=== PATIENT | male | born 1945 | race Hispanic/Latino ===

== ENCOUNTER 2016-07-14 09:44 | Day surgery (SDC) | payer MEDICARE, MEDICAID ==
[2016-07-14] VITALS (9 sets, daily range): BP systolic 112–193; BP diastolic 49–64; PULSE 57–64; RESP 16; O2SAT 96–99
[~2016-07-14] VITALS: Ht 160 cm; Wt 60.0 kg
[~2016-07-14 09:44] MED LIST: AMLO5TAB2 PO; ASPI-973 PO; CALMOSEPTINE TOP; CEPH-512 PO; CHOL500050 PO; CLOP75TA28 PO; DEXT1DRO8 LEFT_EYE; ESZO2TAB38 PO; HYDR-3740 PO; INSU100C8 SUBQ; INSU100I13 SUBQ; LISI-567 PO; NEPHVIT PO; TRAZ-115 PO; [UNRECOGNIZED DRUG - OTHER] PO
[2016-07-14 11:27] LABS: BASOPHILS % (AUTO) 0.2 % (0-3); EOSINOPHILS % (AUTO) 0.9 % (0-5); MONOCYTES % (AUTO) 10.4 % (4-12); Mean Corpuscular Hemoglobin 28.4 pg (27.0-35.0); Mean Corpuscular Volume 85.1 fL (81-100); NEUTROPHILS % (AUTO) 45.2 % (40-74); Platelet Count 121 bil/L (150-400)
[2016-07-14 11:31] LABS: INR 0.95 ratio
[2016-07-14] MEDS ORDERED: 0.9% Sodium Chloride 500 ML ONE (12:14)
[2016-07-14] MEDS ORDERED: Heparin 5,000 Units/500 mL NS Premix IV ONE ×2 (12:22→13:11)
[2016-07-14] MEDS ORDERED: fentaNYL-PF 50 mCg/mL 2 mL Inj ONE (12:25)
[2016-07-14] MEDS ORDERED: Heparin 1,000 Unit/mL 10 mL Inj ONE (12:45)
--- NOTE | 2016-07-14 14:20 | DRSVH ---
PROCEDURE: CV REPLACE CATH TUNLD 1. Conscious sedation for 30 minutes. 2. Right internal jugular vein tunneled hemodialysis catheter replacement. 3. Fluoroscopic guidance for catheter placement. INDICATIONS: ESRD TECHNIQUE: The indications, alternatives, benefits, risks, and complications of the procedure were e xplained to the patient and any family members present. Informed written consent was obtained and pl aced in the chart. The patient was brought to the angiography suite, and conscious sedation was admi nistered intravenously by jail staff, while continuous cardiorespiratory monitoring was pe rformed. Maximum sterile barrier technique was employed per standard protocol, including hand hygiene, cap, ma sk, sterile gown and gloves, and 2% chlorhexidine. 1% lidocaine was used for local anaesthesia. 2 Glidewire were advanced into the existing lumens of th e hemodialysis catheter. Blunt dissection was used to remove the catheter at the chest wall. The cath eter was removed. A Kumpe catheter was used to advance the glide wires into the IVC. Next, a new 19 c m catheter was advanced over the Glidewires with the tip in the right atrium. Adequate flow was obta ined through both lumens of the catheter. The venotomy was closed with Vicryl, and the catheter was fastened to the skin with Ticron. Both lumens were flushed with heparinized saline. The patient tolerated the procedure without difficulty and was in stable condition at the conclusion of the procedure. COMPARISON: [facility], , TUNNEL CATH PLACEMENT >5YRS (PNL), 01/14/2012, 11:56. FINDINGS: Fluoroscopic imaging demonstrates tip of the catheter in the right atrium. IMPRESSION: Right internal jugular vein tunneled hemodialysis catheter placement using fluoroscopic guidance. Dictated by: Ana Siddiqui M.D. on 07/14/2016 at 13:58 Approved by: Ana Siddiqui M.D. on 07/14/2016 at 14:17
--- NOTE | 2016-07-14 16:26 | NUR ---
Pt discharged to out patient dialysis. Rt upper chest catheter site with small amt oozing, no hematoma noted, VSS.
== END 2016-07-14 23:59 | disposition home or self-care (01) ==
LOC: SOUO 09:44
PROVIDERS: ATTEND Radiology Vascular & Interventional Radiology
DX: T82.41XA Breakdown (mechanical) of vascular dialysis catheter, initial encounter (principal); N18.6 End stage renal disease; Y84.8 Other medical procedures as the cause of abnormal reaction of the patient, or of later complication, without mention of misadventure at the time of the procedure
CPT/HCPCS: 36415; 36581; 77001; 80048; 85025; 85610; 99152; 99153; C1750; C1769; J1644; J2250; J3010